=== PATIENT | female | born 1960 | race American Indian/Alaskan Native ===

== ENCOUNTER 2018-02-03 19:01 | Emergency (ER) | payer OTHER, MEDICAID ==
[2018-02-03 19:49] VITALS: BP 123/71
--- NOTE | 2018-02-03 20:49 | XRay Report ---
FINAL REPORT PROCEDURE: XR SPINE LUMBOSACRAL 2-3V TECHNIQUE: Lumbosacral spine, AP and lateral views HISTORY: lower back pain COMPARISON: No prior studies are available for comparison. FINDINGS: The vertebral body heights and alignment are maintained. Disc spaces are preserved. IMPRESSION: No acute fracture or subluxation is seen
--- NOTE | 2018-02-03 22:23 | Cat Scan Report ---
FINAL REPORT PROCEDURE: CT HEAD/BRAIN WO CON TECHNIQUE: Computerized tomography of the head was performed without contrast material. HISTORY: headache COMPARISON: No prior studies are available for comparison. FINDINGS: No CT evidence of intracranial mass, hemorrhage, acute territorial infarction, or hydrocephalus. No acute fracture is seen. There is deformity of bilateral medial orbital cardona, which has a chronic appearance. There is minimal right maxillary sinus mucosal thickening. Mastoids are aerated. IMPRESSION: No CT evidence of acute intracranial abnormality
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
[2018-02-03] MEDS ORDERED: TORADOL IM ONE (23:16)
[2018-02-03] MEDS ORDERED: FLEXERIL PO ONE (23:16)
== END 2018-02-03 23:40 | disposition home or self-care (01) ==
LOC: ED 19:01
DX: S39.012A Strain of muscle, fascia and tendon of lower back, initial encounter (principal); V49.49XA Driver injured in collision with other motor vehicles in traffic accident, initial encounter; Y93.89 Activity, other specified; Y92.89 Other specified places as the place of occurrence of the external cause; Y99.8 Other external cause status
CPT/HCPCS: 70450; 72100; 93005; 93010; 96372; 99284; J1885